=== PATIENT | female | born 1985 | race Native Hawaiian/Other Pacific Islander ===

== ENCOUNTER 2017-05-01 23:13 | Emergency (ER) | payer BC ==
[~2017-05-01] VITALS: Ht 170.2 cm; Wt 120.2 kg
[~2017-05-01 23:13] MED LIST: CYCL10TA35 PO; PERCOCET1 TA3 PO
[2017-05-01 23:40] LABS: PLATELET COUNT 328 K/uL (152-353)
[2017-05-01 23:51] LABS: POTASSIUM 3.5 mmol/L (3.6-5.2); SODIUM 135 mmol/L (136-145)
[2017-05-02 00:35] VITALS: BP 143/88; TEMP 98.3
== END 2017-05-02 00:30 | disposition home or self-care (01) ==
LOC: ED 23:13
DX: R10.9 Unspecified abdominal pain (principal); N83.291 Other ovarian cyst, right side
CPT/HCPCS: 36415; 80053; 81000; 85027; 96361; 96374; 96375; 99284; J1885; J2405

== ENCOUNTER 2018-04-20 12:01 | Outpatient (CLI) | payer BC | END 2018-04-20 22:43 | disposition home or self-care (01) | LOC: RAD 12:01 | DX: M54.5 Low back pain (principal) ==

== ENCOUNTER 2020-06-27 12:01 | Outpatient (CLI) | payer OTHER | END 2020-06-27 23:39 | disposition home or self-care (01) | LOC: RAD 12:01 | DX: J20.8 Acute bronchitis due to other specified organisms (principal) ==

== ENCOUNTER 2022-06-29 12:39 | Outpatient (CLI) | payer OTHER | END 2022-06-29 20:11 | disposition home or self-care (01) | LOC: RAD 12:39 | PROVIDERS: ATTEND Nurse Practitioner Family | DX: J20.8 Acute bronchitis due to other specified organisms (principal) ==

== ENCOUNTER 2022-07-20 12:28 | Outpatient (CLI) | payer OTHER | END 2022-07-20 20:52 | disposition home or self-care (01) | LOC: LABW 12:28 | PROVIDERS: ATTEND Nurse Practitioner Family | DX: R60.0 Localized edema (principal) | CPT/HCPCS: 36415; 82550; 82553; 83880; 84484; 85379; 93005 ==

== ENCOUNTER 2023-07-20 15:08 | Outpatient (CLI) | payer OTHER | END 2023-07-20 19:10 | disposition home or self-care (01) | LOC: US 15:08 | PROVIDERS: ATTEND Nurse Practitioner Family | DX: R60.0 Localized edema (principal) ==